=== PATIENT | male | born 1970 | race Two or more races ===

== ENCOUNTER 2022-05-29 15:32 | Inpatient (IN) | payer OTHER ==
[~2022-05-29] VITALS: Ht 188 cm; Wt 105.2 kg
--- NOTE | 2022-05-29 16:05 | NUR ---
REceived pt walking in from home c/o abdominale pain since 03/18 yesterday awake and alert
[2022-05-29] MEDS ORDERED: MORPHINE SULFATE INJ 4 MG/ML DISP.SYRIN ONE (16:23)
[2022-05-29] MEDS ORDERED: MORPHINE SULFATE INJ 2 MG/ML DISP.SYRIN IV ONE (16:30)
[2022-05-29 16:42] LABS: BASOPHILS # (AUTO) 0.1 K/uL (0.0-0.2); BASOPHILS % (AUTO) 0.5 % (0.0-2.0); EOSINOPHILS % (AUTO) 2.1 % (0.0-6.0); HEMATOCRIT 40 % (39-51); HEMOGLOBIN 13.5 g/dL (13.5-17.5); LYMPHOCYTES # (AUTO) 1.8 K/uL (0.8-4.8); LYMPHOCYTES % (AUTO) 12.7 % (20.0-44.0); MEAN CORPUSCULAR HGB CONC 34 g/dl (31.0-36.0); MEAN CORPUSCULAR VOLUME 87 fL (80-96); MONOCYTES # (AUTO) 1.2 K/uL (0.1-1.30); MONOCYTES % (AUTO) 8.8 % (2.0-12.0); NEUTROPHILS # (AUTO) 10.7 K/uL (1.8-8.9); NEUTROPHILS % (AUTO) 75.9 % (43.0-81.0); PLATELET COUNT (AUTO) 297 K/uL (150-450); RED BLOOD CELL COUNT(AUTO) 4.65 MIL/uL (4.5-6.0); WHITE BLOOD COUNT (AUTO) 14.1 K/uL (4.3-11.0)
[2022-05-29 17:02] LABS: ALBUMIN 3.7 g/dL (3.4-5.0); BILIRUBIN,DIRECT 0.1 mg/dL (0.0-0.2); BILIRUBIN,TOTAL 0.5 mg/dL (0.2-1.0); CALCIUM, SERUM 9.5 mg/dL (8.5-10.1); CREATININE 1.1 mg/dL (0.6-1.3); POTASSIUM 3.8 mmol/L (3.5-5.1); TOTAL PROTEIN, SERUM 7.7 g/dL (6.4-8.2)
[2022-05-29] MEDS ORDERED: CEFTRIAXONE 1GM BAG (ER ONLY) 50 ML IV ONE ×2 (18:00→18:07)
[2022-05-29] MEDS ORDERED: KETOROLAC TROMETHAMINE INJ 30 MG/ML VIAL IV ONE (18:00)
[2022-05-29] MEDS ORDERED: IV NS 0.9% 1,000 ML BAG IV ONE (18:00)
[2022-05-29] MEDS ORDERED: METRONIDAZOLE 500MG/ NS 100ML 100 ML IV ONE ×2 (18:00→18:06)
--- NOTE | 2022-05-29 18:00 | NUR ---
BLOOD CULURE X2 DONE BLOOD drow by lab tach
--- NOTE | 2022-05-29 18:04 | NUR ---
MOVE SHEET SUBMITTED.
--- NOTE | 2022-05-29 18:05 | NUR ---
CALLED DR. GARCIA, SPEAKING WITH DR. MENDOZA.
[2022-05-29] MEDS ORDERED: KETOROLAC TROMETHAMINE INJ 30 MG/ML VIAL ONE (18:07)
[2022-05-29] MEDS ORDERED: HYDROMORPHONE 1 MG/1 ML DISP.SYRIN IV ONE (18:30)
[2022-05-29] MEDS ORDERED: HYDROMORPHONE 1 MG/1 ML DISP.SYRIN ONE (18:39)
--- NOTE | 2022-05-29 18:52 | NUR ---
NOHEMI BARNETT SENT TO LAB
[2022-05-29] MEDS ORDERED: LORAZEPAM INJ 2 MG/ML VIAL IV ONE (19:00)
--- NOTE | 2022-05-29 19:00 | NUR ---
PT ASLEEPY AND MORE COMFORTABLE DINESES PAIN AND REFUSED Ativan at this time
--- NOTE | 2022-05-29 19:20 | NUR ---
HAND OFF ANTWAN MURRAY
[2022-05-29] MEDS ORDERED: MAGNESIUM OXIDE 400 MG TABLET ONE (19:45)
[2022-05-29] MEDS ORDERED: POTASSIUM CHLORIDE 20 MEQ TAB.PRT.SR PO ONE (19:45)
--- NOTE | 2022-05-29 20:59 | NUR ---
BED 314-2
[2022-05-29] MEDS ORDERED: HYDROMORPHONE INJ 2 MG/ML DISP.SYRIN ONE (21:59)
[2022-05-29] MEDS ORDERED: ONDANSETRON HCL/PF 4 MG/2 ML VIAL IV PRN (22:00)
[2022-05-29] MEDS ORDERED: ACETAMINOPHEN 325 MG TABLET PO PRN (22:00)
[2022-05-29] MEDS ORDERED: HYDROMORPHONE INJ 2 MG/ML DISP.SYRIN IV ONE (22:00)
[2022-05-29] MEDS ORDERED: HYDROMORPHONE MDV 1 MG in IV D5W 50 ML IV PRN (22:00)
[2022-05-29] MEDS ORDERED: ZOLPIDEM TARTRATE 5 MG TABLET PO PRN (22:30)
--- NOTE | 2022-05-29 22:37 | NUR ---
PT TRANSFERRING TO 3W VIA HOSPITAL PROTOCOL. VSS. ALL BELONGINGS WITH PT
[2022-05-29 22:39] VITALS: BP 106/63
[2022-05-30] MEDS ORDERED: PIPERACILLIN /TAZOBACTAM 3.375 G VIAL IV ONE ×2 (00:10→05:15)
[2022-05-30] MEDS: PIPERACILLIN /TAZOBACTAM 3.375 G in IV D5W 50 ML IV SCH ×2 (00:13→06:31)
--- NOTE | 2022-05-30 00:35 | NUR ---
ADMISSION RN NOTES PATIENT CAME IN UNIT AT AROUND 2239, ACCOMPANIED BY 1 ER PERSONNEL VIA STRETCHER. PATIENT IS A/OX4, DROWSY AT THIS TIME. NO S/S OF APPARENT DISTRESS ON ROOM AIR. DENIES PAIN AT THIS TIME. PATIENT BELONGINGS CHECKED. NEW ID BAND ON PATIENT. LT. AC #20 G NOTED, INTACT AND PATENT. SKIN INTACT. PATIENT UP-TO-DATE WITH COVID AND FLU SHOT PER HIM. WISHES TO BE FULL CODE. PATIENT IN FOR LAPAROSCOPIC APPENDECTOMY TOMORROW, MADE AWARE OF NPO STATUS. PATIENT ACKNOWLEDGED. CALL LIGHT WITHIN REACH, ORIENTED AND ENCOURAGED WITH THE USE. SAFETY IN PLACE. WILL FOLLOW THROUGH DOCTOR'S ORDERS.
[2022-05-30] MEDS: HYDROMORPHONE 1 MG/1 ML DISP.SYRIN IV PRN ×2 (05:06→22:41)
[2022-05-30 06:52] LABS: BASOPHILS # (AUTO) 0.1 K/uL (0.0-0.2); BASOPHILS % (AUTO) 0.3 % (0.0-2.0); HEMATOCRIT 39 % (39-51); HEMOGLOBIN 13.1 g/dL (13.5-17.5); LYMPHOCYTES # (AUTO) 0.5 K/uL (0.8-4.8); LYMPHOCYTES % (AUTO) 2.1 % (20.0-44.0); MEAN CORPUSCULAR HGB CONC 33 g/dl (31.0-36.0); MEAN CORPUSCULAR VOLUME 88 fL (80-96); MONOCYTES # (AUTO) 0.4 K/uL (0.1-1.30); MONOCYTES % (AUTO) 1.8 % (2.0-12.0); NEUTROPHILS # (AUTO) 22.8 K/uL (1.8-8.9); NEUTROPHILS % (AUTO) 95.8 % (43.0-81.0); PLATELET COUNT (AUTO) 215 K/uL (150-450); RED BLOOD CELL COUNT(AUTO) 4.42 MIL/uL (4.5-6.0); WHITE BLOOD COUNT (AUTO) 23.8 K/uL (4.3-11.0)
[2022-05-30] MEDS ORDERED: ANESTHESIA TRAY IN PYXIS 1 EA TRAY MC ONE (06:52)
[2022-05-30] MEDS ORDERED: BUPIVACAINE 0.5 % PF 150 MG/30 ML VIAL ONE (06:53)
[2022-05-30] MEDS ORDERED: ROCURONIUM BROMIDE 50 MG/5 ML ONE (07:10)
[2022-05-30] MEDS ORDERED: FENTANYL PF 100MCG/2ML AMPUL ONE ×2 (07:10→08:41)
--- NOTE | 2022-05-30 07:10 | NUR ---
patient taken to surgery at this time. v/s stable.
[2022-05-30 07:18] LABS: BILIRUBIN,TOTAL 0.5 mg/dL (0.2-1.0); CALCIUM, SERUM 8.7 mg/dL (8.5-10.1); CREATININE 1.4 mg/dL (0.6-1.3); POTASSIUM 3.1 mmol/L (3.5-5.1); TOTAL PROTEIN, SERUM 6.7 g/dL (6.4-8.2)
--- NOTE | 2022-05-30 07:30 | NUR ---
MS RN OPENING NOTES PATIENT OUT FOR SURGERY AT THIS TIME
[2022-05-30] MEDS ORDERED: PRED10TA (08:37)
[2022-05-30] MEDS ORDERED: POTASSIUM CHLORIDE 20 MEQ TAB.PRT.SR PO ONE ×2 (09:00→13:00)
[2022-05-30 10:00] VITALS: BP 105/72
--- NOTE | 2022-05-30 10:00 | NUR ---
MS RN NOTES PATIENT CAME BACK FROM SURGERY, ALERT ORIENTED X 4 . NO ACUTE DISTRESS NOTED. BREATHING UNLABORED, NO SOB NOTED. DENIED PAIN AT THIS TIME ,NO FACIAL GRIMACING NOTED. VITAL SIGNS STABLE. ABDOMINAL SURGICAL DRESSING X3 CLEAN DRY AND INTACT. ABLE TO MOVE ALL EXTREMITIES AND SENSATION WITHIN NORMAL LIMITS. IV ACCESS PATENT AND INTACT, NO REDNESS OR SWELLING NOTED. WILL CONTINUE TO MONITOR ACCORDINGLY
[2022-05-30 11:00] VITALS: BP 102/72
--- NOTE | 2022-05-30 11:00 | NUR ---
MS RN NOTES PATIENT ALERT ORIENTED X 4. NO ACUTE DISTRESS NOTED.DENIED PAIN AT THIS TIME. BREATHING UNLABORED. VITAL SIGN REMAIN STABLE. WILL CONTINUE TO MONITOR ACCORDINGLY
[2022-05-30] MEDS ORDERED: PIPERACILLIN /TAZOBACTAM 3.375 G in IV D5W 50 ML IV SCH (12:00)
[2022-05-30] MEDS ORDERED: POTASSIUM CHLORIDE 20 MEQ POWDER PACKET PO SCH (12:00)
[2022-05-30] MEDS: PIPERACILLIN /TAZOBACTAM 3.375 G in IV D5W 100 ML IV SCH ×2 (13:40→22:18)
[2022-05-30] MEDS: HYDROCODONE/APAP 5/325MG TABLET PO PRN (14:15)
[2022-05-30 16:00] VITALS: BP 120/74
--- NOTE | 2022-05-30 18:43 | NUR ---
MS RN CLOSING NOTES PATIENT ALERT ORIENTED X 4 . NO ACUTE DISTRESS NOTED. BREATHING UNLABORED, NO SOB NOTED. DENIED PAIN AT THIS TIME ,NO FACIAL GRIMACING NOTED. VITAL SIGNS REMAIN STABLE. ABDOMINAL SURGICAL DRESSING X3 CLEAN DRY AND INTACT. ABLE TO MOVE ALL EXTREMITIES AND SENSATION WITHIN NORMAL LIMITS. IV ACCESS PATENT AND INTACT, NO REDNESS OR SWELLING NOTED. NEEDS ATTENDED AND ANTICIPATED. WILL ENDORSE TO NIGHT NURSE FOR CONTINUITY OF CARE
--- NOTE | 2022-05-30 19:30 | NUR ---
MS RN OPENING NOTE RECEIVED PT AWAKE IN BED. A/O X4 AND ABLE TO MAKE NEEDS KNOWN. PT STABLE ON ROOM AIR. NO SOB OR S/S OF RESPIRATORY DISTRESS. BREATHING EVEN AND UNLABORED. IV ACCESS LAC 20G SL, INTACT AND PATENT. SAFETY PRECAUTIONS IN PLACE. BED IN LOWEST LOCKED POSITION, HOB ELEVATED, SIDE RAILS UP X2, AND CALL LIGHT AND TABLE WITHIN REACH. ALL NEEDS MET AT THIS TIME.
[2022-05-30 20:00] VITALS: BP 90/60
--- NOTE | 2022-05-30 22:41 | NUR ---
RN NOTE PT COMPLAINED OF ABDOMINAL PAIN 05/18. NONPHARMACOLOGICAL METHODS NOT EFFECTIVE. ADMINISTERED DILAUDID 1 MG FOR SEVERE PAIN. MADE COMFORTABLE IN BED. ALL NEEDS MET AT THIS TIME.
[2022-05-31] MEDS ORDERED: IV NS 0.9% 1,000 ML IV ONE (00:30)
[2022-05-31] MEDS: PIPERACILLIN /TAZOBACTAM 3.375 G in IV D5W 100 ML IV SCH ×3 (05:02→21:09)
[2022-05-31] MEDS ORDERED: IV NS 0.9% 500 ML IV ONE (06:00)
[2022-05-31 06:27] LABS: BASOPHILS % (AUTO) 0.1 % (0.0-2.0); EOSINOPHILS % (AUTO) 0.4 % (0.0-6.0); HEMATOCRIT 32 % (39-51); HEMOGLOBIN 10.7 g/dL (13.5-17.5); LYMPHOCYTES # (AUTO) 1.1 K/uL (0.8-4.8); LYMPHOCYTES % (AUTO) 5.5 % (20.0-44.0); MEAN CORPUSCULAR HGB CONC 34 g/dl (31.0-36.0); MEAN CORPUSCULAR VOLUME 88 fL (80-96); MONOCYTES # (AUTO) 1.2 K/uL (0.1-1.30); MONOCYTES % (AUTO) 5.6 % (2.0-12.0); NEUTROPHILS # (AUTO) 18.3 K/uL (1.8-8.9); NEUTROPHILS % (AUTO) 88.4 % (43.0-81.0); PLATELET COUNT (AUTO) 182 K/uL (150-450); WHITE BLOOD COUNT (AUTO) 20.7 K/uL (4.3-11.0)
--- NOTE | 2022-05-31 06:55 | NUR ---
RN NOTE PT COMPLAINING OF GENERALIZED PAIN 02/15. ADMINISTERED NORCO 10-325 MG FOR PAIN ORDERED. MADE COMFORTABLE IN BED. ALL NEEDS MET AT THIS TIME. Addendum: 05/31/22 at 0706 by NAVJOT VAZQUEZ RN NOTED UNDER WRONG PATIENT, PAIN MEDICATION NOT GIVEN
--- NOTE | 2022-05-31 07:01 | NUR ---
MS RN CLOSING NOTE PT AWAKE IN BED. A/O X4 AND ABLE TO MAKE NEEDS KNOWN. PT STABLE ON ROOM AIR. NO SOB OR S/S OF RESPIRATORY DISTRESS. BREATHING EVEN AND UNLABORED. IV ACCESS LAC 20G SL, INTACT AND PATENT. PT RECEIVED A 1000 ML BOLUS OF NS AND A 500 ML BOLUS OF NS DUE TO LOW BP, MD HURTADO AWARE, PT OTHERWISE ASYMPTOMATIC. ALL DUE MEDS GIVEN ORDERED. SAFETY PRECAUTIONS IN PLACE AT ALL TIMES. BED IN LOWEST LOCKED POSITION, HOB ELEVATED, SIDE RAILS UP X2, AND CALL LIGHT AND TABLE WITHIN REACH. ALL NEEDS MET AT THIS TIME AND WILL ENDORSE TO ONCOMING NURSE FOR SABAS.
[2022-05-31 07:09] LABS: CALCIUM, SERUM 7.9 mg/dL (8.5-10.1); CREATININE 1.3 mg/dL (0.6-1.3); MAGNESIUM 2.1 mg/dL (1.8-2.4); POTASSIUM 3.7 mmol/L (3.5-5.1)
--- NOTE | 2022-05-31 08:08 | NUR ---
MS RN OPENING NOTE Patient in bed, awake. A/O x 4, able to make needs known. On room air, breathing evenly and unlabored. No SOB or s/s of distress noted. IV access on LAC #20 SL, intact and patent. Safety precautions in place: bed in low, locked position; siderails up x 2, call light within reach. Will continue to monitor.
[2022-05-31 10:03] VITALS: BP_SYST 103; BP_SYST 89; BP_DIAS 66; BP_DIAS 76
[2022-05-31] MEDS: ALPRAZOLAM 0.5 MG TABLET PO PRN (11:15)
[2022-05-31] MEDS: Potassium Chloride 10 MEQ in IV NS 0.9% 1,000 ML IV SCH ×2 (12:01→21:09)
[2022-05-31] MEDS ORDERED: ZOLPIDEM TARTRATE 5 MG TABLET PO PRN (13:00)
--- NOTE | 2022-05-31 19:00 | NUR ---
RN NOTE Patient's IV is leaking, removed and re-inserted on Right hand #22.
--- NOTE | 2022-05-31 19:48 | NUR ---
MS RN OPENING NOTE RECEIVED PT AWAKE IN BED. A/O X4 AND ABLE TO MAKE NEEDS KNOWN.DEBBIE WELL ON RM AIR NO SIGN SOB/DISTRESS NOTED. BREATHING EVEN AND UNLABORED.NO COMPLAINE OF PAIN/DISCOMFORT AT THIS TIME, IV ACCESS LAC 20G SL, INTACT AND PATENT. SAFETY PRECAUTIONS IN PLACE.CALL LIGHT AND TABLE WITHIN REACH.KAELYN CONTINUE TO MONITOR.
--- NOTE | 2022-05-31 19:51 | NUR ---
MS RN CLOSING NOTE Patient in bed, resting. A/O x 4, able to make needs known. On room air, breathing evenly and unlabored. No SOB or s/s of distress noted. IV access on Right hand #22 intact and patent. All needs attended to. Due meds given. Patient has been having diarrhea after eating, states that it might be from his colitis. Dr. Roberts aware. Safety precautions in place: bed in low, locked position; siderails up x 2, call light within reach. Will endorse to fast food shift lead nurse for SABAS.
[2022-05-31 20:33] VITALS: BP 102/64
[2022-05-31] MEDS: HYDROCODONE/APAP 5/325MG TABLET PO PRN (21:58)
--- NOTE | 2022-05-31 21:58 | NUR ---
RN NOTES; PT COMPLAINED OF ABDOMINAL PAIN 02/15.PRN NORCO 5-325MG PO WAS GIVEN.
[2022-06-01] MEDS: PIPERACILLIN /TAZOBACTAM 3.375 G in IV D5W 100 ML IV SCH ×3 (05:05→21:04)
--- NOTE | 2022-06-01 06:21 | NUR ---
MS RN CLOSING NOTE; Patient in bed,AA/O x 4, able to make needs known. On room air paul well,No Sob/Distress noted,breathing evenly and unlabored. . IV access on Right hand #22 intact and patent. All needs attended,Due meds given as order,Patient stated everytime He take something by mouth make him go to the bathroom , states that it might be from his colitis. Safety precautions in place: bed in low, locked position; siderails up x 2, call light within reach. Will endorse to next shift.
[2022-06-01 06:52] LABS: BASOPHILS % (AUTO) 0.4 % (0.0-2.0); EOSINOPHILS % (AUTO) 3.9 % (0.0-6.0); HEMATOCRIT 37 % (39-51); HEMOGLOBIN 12.5 g/dL (13.5-17.5); LYMPHOCYTES # (AUTO) 1.6 K/uL (0.8-4.8); LYMPHOCYTES % (AUTO) 13.6 % (20.0-44.0); MEAN CORPUSCULAR HGB CONC 34 g/dl (31.0-36.0); MEAN CORPUSCULAR VOLUME 88 fL (80-96); MONOCYTES # (AUTO) 0.9 K/uL (0.1-1.30); MONOCYTES % (AUTO) 7.5 % (2.0-12.0); NEUTROPHILS # (AUTO) 8.7 K/uL (1.8-8.9); NEUTROPHILS % (AUTO) 74.6 % (43.0-81.0); PLATELET COUNT (AUTO) 200 K/uL (150-450); RED BLOOD CELL COUNT(AUTO) 4.22 MIL/uL (4.5-6.0); WHITE BLOOD COUNT (AUTO) 11.7 K/uL (4.3-11.0)
[2022-06-01 07:13] LABS: CALCIUM, SERUM 8.8 mg/dL (8.5-10.1); CREATININE 1.1 mg/dL (0.6-1.3); POTASSIUM 3.5 mmol/L (3.5-5.1)
[2022-06-01 08:00] VITALS: BP 98/61
[2022-06-01 08:03] LABS: THYROID STIMULATING HORMONE 1.902 uIU/mL (0.358-3.74)
[2022-06-01] MEDS: Potassium Chloride 10 MEQ in IV NS 0.9% 1,000 ML IV SCH (08:30)
[2022-06-01] MEDS ORDERED: predniSONE 20 MG TABLET PO SCH (09:00)
[2022-06-01] MEDS: methylPREDNISolone SOD SUCC 40 MG/ML VIAL IV SCH ×2 (10:28→21:04)
[2022-06-01] MEDS: HYDROCODONE/APAP 5/325MG TABLET PO PRN (10:59)
[2022-06-01] MEDS: MESALAMINE 400 MG CAP PO SCH ×3 (11:25→17:57)
[2022-06-01 16:00] VITALS: BP 92/58
--- NOTE | 2022-06-01 18:29 | NUR ---
RN CLOSING NOTE PATIENT RECEIVED IN BED AND AWAKE. A/O X4 AND ABLE TO VERBALIZE NEEDS THROUGHOUT SHIFT. IV ACCESS TO R-HAND REMAINED INTACT AND PATENT. PREMIX OF POTASSIUM CHLORIDE IN NS RUNNING CONTINUOUSLY @ 100ML/HR. PATIENT RECEIVED IV ABX ON SHIFT; TOLERATED MEDICATION WELL WITH NO S/SX OF ADVERSE REACTIONS. PATIENT C/O PAIN TO ABDOMINAL AREA ONCE ON SHIFT. RECEIVED NORCO 5-325MG X1 TABLET. MEDICATION EFFECTIVE. NO OTHER C/O PAIN OR OBSERVATIONS OF ACUTE DISTRESS OBSERVED. PATIENT ABLE TO AMBULATE THROUGHOUT BEDROOM AND TO/FROM RESTROOM. DIET ADVANCED FROM FULL LIQUID TO SOFT. ABLE TO TOLERATE MEALS WELL AT THIS TIME. SURGICAL SITE/INCISIONS KEPT DRY WITH NO S/SX OF TRAUMA, BLEEDING, INFECTION. SAFETY PRECAUTIONS IN PLACE WITH BED LOW AND LOCKED.CALL LIGHT WITHIN REACH. WILL CONTINUE TO MONITOR.
--- NOTE | 2022-06-01 19:22 | NUR ---
MS RN OPENING NOTE RECEIVED PT AWAKE IN BED. A/O X4 AND ABLE TO MAKE NEEDS KNOWN.DEBBIE WELL ON RM AIR NO SIGN SOB/DISTRESS NOTED. BREATHING EVEN AND UNLABORED.NO COMPLAINE OF PAIN/DISCOMFORT AT THIS TIME, IV ACCESS R HAND 20G SL, INTACT AND PATENT. SAFETY PRECAUTIONS IN PLACE.CALL LIGHT AND TABLE WITHIN REACH.KAELYN CONTINUE TO MONITOR.
[2022-06-01 20:00] VITALS: BP 104/77
[2022-06-01] MEDS: ALPRAZOLAM 0.5 MG TABLET PO PRN (22:25)
--- NOTE | 2022-06-01 22:48 | NUR ---
RN NOTES; PT COMPLAINED OF HEARTBURN,STATED MAYBE CAUSE OF THE NEW DIET.I TEXTED ,WITH A NEW ORDER.PROTONEX 40MG IV DAILY.
[2022-06-02] MEDS ORDERED: PANTOPRAZOLE 40 MG VIAL IV SCH
[2022-06-02] MEDS: Potassium Chloride 10 MEQ in IV NS 0.9% 1,000 ML IV SCH ×2 (03:11→04:59)
[2022-06-02] MEDS: PIPERACILLIN /TAZOBACTAM 3.375 G in IV D5W 100 ML IV SCH (05:03)
--- NOTE | 2022-06-02 06:19 | NUR ---
MS RN CLOSING NOTE; Patient in bed,AA/O x 4, able to make needs known. On room air paul well,No Sob/Distress noted,breathing evenly and unlabored. . IV access on Right hand #22 intact and patent. All needs attended,Due meds given as order,Safety precautions in place: bed in low, locked position; siderails up x 2, call light within reach. Will endorse to next shift.
[2022-06-02 06:50] LABS: BASOPHILS % (AUTO) 0.1 % (0.0-2.0); HEMATOCRIT 38 % (39-51); HEMOGLOBIN 12.5 g/dL (13.5-17.5); LYMPHOCYTES # (AUTO) 1.6 K/uL (0.8-4.8); LYMPHOCYTES % (AUTO) 11.3 % (20.0-44.0); MEAN CORPUSCULAR HGB CONC 33 g/dl (31.0-36.0); MEAN CORPUSCULAR VOLUME 88 fL (80-96); MONOCYTES # (AUTO) 0.7 K/uL (0.1-1.30); MONOCYTES % (AUTO) 5.2 % (2.0-12.0); NEUTROPHILS # (AUTO) 11.8 K/uL (1.8-8.9); NEUTROPHILS % (AUTO) 83.4 % (43.0-81.0); PLATELET COUNT (AUTO) 256 K/uL (150-450); RED BLOOD CELL COUNT(AUTO) 4.28 MIL/uL (4.5-6.0); WHITE BLOOD COUNT (AUTO) 14.1 K/uL (4.3-11.0)
[2022-06-02 07:00] VITALS: BP 123/87
[2022-06-02 07:11] LABS: CREATININE 0.9 mg/dL (0.6-1.3); MAGNESIUM 2.4 mg/dL (1.8-2.4); POTASSIUM 3.9 mmol/L (3.5-5.1)
--- NOTE | 2022-06-02 07:30 | NUR ---
RN OPENING NOTE PATIENT RECEIVED IN BED AND SLEEPING. A/O X4. NO RESPIRATORY DISTRESS OBSERVED UPON ASSESSMENT. SAFETY MEASURES INTACT WITH BED LOW AND LOCKED. CALL LIGHT WITHIN REACH. WILL CONT TO MONITOR.
[2022-06-02] MEDS ORDERED: PRED5TAB48 PO (08:26)
[2022-06-02] MEDS ORDERED: MESA400C3 PO (08:26)
[2022-06-02] MEDS: methylPREDNISolone SOD SUCC 40 MG/ML VIAL IV SCH (09:27)
[2022-06-02] MEDS: MESALAMINE 400 MG CAP PO SCH (09:27)
--- NOTE | 2022-06-02 11:23 | NUR ---
INVESTIGATIVE SHOPPER NOTE PATIENT DISCHRGED FROM FACILITY @ 3779. IV ACCESS TAKEN OUT WITH NO BLEEDING OR TRAUMA OBSERVED AT ACCESS SITE. ALL CLOTHING AND PERSONAL ITEMS TAKEN WITH PATIENT UPON LEAVE; INVENTORY LIST SIGNED. LEFT VIA PRIVATE CAR ACCOMPANIED BY DAUGHTER.
[2022-06-02 11:50] LABS: BAND % (MANUAL) 3 % (0.0-5.0); LYMPHOCYTES % (MANUAL) 7 % (16-48); MONOCYTES % (MANUAL) 5 % (0-11.0); NEUTROPHILS % (MANUAL) 85 (42-76)
== END 2022-06-02 11:00 | disposition home health service (06) | DRG 710 ==
LOC: ER 15:42 → MED 22:38
PROVIDERS: ADMIT Internal Medicine; ATTEND Internal Medicine
PROC: 0DTJ4ZZ Resection of Appendix, Percutaneous Endoscopic Approach (ICD-10-PCS; principal; 2022-05-30)
DX: A41.9 Sepsis, unspecified organism (principal); N17.0 Acute kidney failure with tubular necrosis; K35.30 Acute appendicitis with localized peritonitis, without perforation or gangrene; K51.90 Ulcerative colitis, unspecified, without complications; Z20.822 Contact with and (suspected) exposure to COVID-19
CPT/HCPCS: 36415; 80048-TC; 80053-TC; 80076-TC; 83540-TC; 83605-TC; 83690-TC; 83735-TC; 84443-TC; 85025-TC; 85610-TC; 85730-TC; 87040-TC; 87070-TC; 87075-TC; 87081-TC; 87186-TC; 93307-TC; A6403; C9113; C9803; G0378; J0330; J0696; J1100; J1170; J1885; J2270; J2405; J2543; J2704; J2920; J3010; J3480; J3490; J7030; J7040; J7050; J7060

== ENCOUNTER 2022-11-16 16:49 | Emergency (ER) | payer OTHER ==
[~2022-11-16] VITALS: Ht 185.4 cm; Wt 104.3 kg
[~2022-11-16 16:49] MED LIST: MESA400C3 PO; PRED5TAB48 PO
[2022-11-16] MEDS ORDERED: IV NS 0.9% 1,000 ML BAG IV ONE (18:00)
[2022-11-16] MEDS ORDERED: MECLIZINE HCL 25 MG TABLET PO ONE (18:00)
[2022-11-16] MEDS ORDERED: MECLIZINE HCL 25 MG TABLET ONE (18:07)
[2022-11-16 18:31] LABS: BASOPHILS # (AUTO) 0.1 K/uL (0.0-0.2); BASOPHILS % (AUTO) 0.8 % (0.0-2.0); EOSINOPHILS % (AUTO) 3.6 % (0.0-6.0); HEMATOCRIT 42 % (39-51); HEMOGLOBIN 13.8 g/dL (13.5-17.5); LYMPHOCYTES # (AUTO) 2.9 K/uL (0.8-4.8); LYMPHOCYTES % (AUTO) 31.9 % (20.0-44.0); MEAN CORPUSCULAR HGB CONC 33 g/dl (31.0-36.0); MEAN CORPUSCULAR VOLUME 88 fL (80-96); MONOCYTES # (AUTO) 1.1 K/uL (0.1-1.30); MONOCYTES % (AUTO) 11.5 % (2.0-12.0); NEUTROPHILS # (AUTO) 4.8 K/uL (1.8-8.9); NEUTROPHILS % (AUTO) 52.2 % (43.0-81.0); PLATELET COUNT (AUTO) 254 K/uL (150-450); RED BLOOD CELL COUNT(AUTO) 4.79 MIL/uL (4.5-6.0); WHITE BLOOD COUNT (AUTO) 9.1 K/uL (4.3-11.0)
[2022-11-16 18:55] LABS: CALCIUM, SERUM 8.8 mg/dL (8.5-10.1); CARBON DIOXIDE 26 mmol/L (21-32); CHLORIDE 106 mmol/L (98-107); CREATININE 1.2 mg/dL (0.6-1.3); GLUCOSE 103 mg/dL (74-106); POTASSIUM 3.6 mmol/L (3.5-5.1); SODIUM SERUM 140 mmol/L (136-145); UREA NITROGEN, BLOOD 18 mg/dL (7-18)
[2022-11-16 19:02] LABS: ALANINE AMINOTRANSFERASE 12 U/L (12-78); ALBUMIN 3.6 g/dL (3.4-5.0); ALKALINE PHOSPHATASE 48 U/L (46-116); ASPARTATE AMINOTRANSFERASE 19 U/L (15-37); BILIRUBIN,DIRECT 0.1 mg/dL (0.0-0.2); BILIRUBIN,TOTAL 0.3 mg/dL (0.2-1.0)
[2022-11-16] MEDS ORDERED: MECL-159 PO (19:23)
[2022-11-16 19:48] VITALS: BP 134/71
== END 2022-11-16 19:49 | disposition home or self-care (01) ==
LOC: ER 17:00
DX: R42 Dizziness and giddiness (principal); F41.9 Anxiety disorder, unspecified; Z90.49 Acquired absence of other specified parts of digestive tract; Z79.899 Other long term (current) drug therapy; Z88.0 Allergy status to penicillin
CPT/HCPCS: 99285; 96360; 70450; 71045; 93005; 85025; 80048; 80076; 36415; 84484; 83880; J8597; J7030